=== PATIENT | female | born 1970 | race Caucasian/White ===

== ENCOUNTER 2018-01-19 08:38 | Outpatient (REF) | payer BC, SELFPAY ==
[2018-01-19 20:51] LABS: HCT 31.4 % (36.0-46.0); Mean Corp. HGB Concentration 28.7 g/dL (32.0-36.0); Mean Corpuscular Hemoglobin 19.2 pg (27.0-33.0); RBC 4.69 m/cumm (4.00-5.20); RBC Distribution Width 18.5 % (11.7-14.6); White Blood Cell Count 5.19 k/cumm (4.4-10.8)
[2018-01-19 20:58] LABS: ALT 23 U/L (12-78); AST 15 U/L (15-37); Alkaline Phosphatase 71 U/L (46-116); Anion Gap 10.6 mmol/L (3-11); BUN 18 mg/dL (7-18); Bilirubin, Total 0.3 mg/dL (0.2-1.0); CO2 25.4 mmol/L (21.0-32.0); CREATININE 0.89 mg/dL (0.55-1.02); Calcium 8.9 mg/dL (8.5-10.1); Chloride 104 mmol/L (98-107); Cholesterol 174 mg/dL (50-200); Glucose 106 mg/dL (70-100); HDL Cholesterol 42 mg/dL (40-60); LDL CHOLESTEROL 112 mg/dL (<100); Magnesium 1.8 mg/dL (1.8-2.4); Potassium 4.2 mmol/L (3.5-5.1); Sodium 140 mmol/L (136-145); Total Protein 7.1 g/dL (6.4-8.2); Triglyceride 185 mg/dL (30-150)
[2018-01-19 21:49] LABS: Platelet Count 204 x1000/uL (130-400)
== END 2018-01-19 08:58 ==
LOC: NCHCN 08:38
PROVIDERS: PCP Specialist/Technologist Athletic Trainer; Visit Provider Specialist/Technologist Athletic Trainer
DX: E83.42 Hypomagnesemia (principal); E78.5 Hyperlipidemia, unspecified; K21.9 Gastro-esophageal reflux disease without esophagitis; R42 Dizziness and giddiness
CPT/HCPCS: 80053; 80061; 83721; 85027; 83735

== ENCOUNTER 2018-02-09 08:36 | Outpatient (REF) | payer BC, SELFPAY ==
[2018-02-09 20:58] LABS: HCT 29.8 % (36.0-46.0); HGB 8.6 g/dL (12.0-15.5)
[2018-02-09 21:22] LABS: Iron 19 ug/dL (50-175); Total Iron Binding Capacity 541 ug/dL (250-450); Transferrin Sat 4 % (15-50)
[2018-02-09 21:48] LABS: Ferritin 4 ng/mL (8-388); Vitamin B12 331 pg/mL (193-986)
== END 2018-02-09 08:56 ==
LOC: NCHCN 08:36
PROVIDERS: PCP Specialist/Technologist Athletic Trainer; Visit Provider Specialist/Technologist Athletic Trainer
DX: D64.9 Anemia, unspecified (principal)
CPT/HCPCS: 82607; 82728; 83540; 83550; 85014; 85018

== ENCOUNTER 2018-02-23 11:36 | Outpatient (REF) | payer BC, SELFPAY ==
--- NOTE | 2018-02-23 08:40 | PAPFT_PTH ---
PATIENT: Luna Contreras LOC: [facility] U#:[id number] AGE/SX: 47/F ROOM: RE02/23/[address]: Rosamaria Rojo NP : 1970 BED: DIS: 02/23/2018 SPEC #: [id number] RECD: 02/23/18 13:20 STATUS: KIERA SALGADO #: [id number] KIKI: 02/23/18 08:[address]: Rosamaria Rojo NP DEPT: [facility] Cytology RECD BY: Catrachita Cash ENTERED: 02/23/18 13:20 SP TYPE: PAPFT OTHR DR: Gaurang Queen Tissues: 1 - CX/ENDOCX FOR PAP SMEARS Procedures: PAP THIN PREP/UVM Screening HPV DNA PROBE Comments: [id number]
== END 2018-02-23 11:56 ==
LOC: LBN 11:36
PROVIDERS: PCP Specialist/Technologist Athletic Trainer; Visit Provider Nurse Practitioner Women's Health
DX: Z12.4 Encounter for screening for malignant neoplasm of cervix (principal); Z11.51 Encounter for screening for human papillomavirus (HPV)
CPT/HCPCS: 88142; 87624

== ENCOUNTER 2018-03-06 00:27 | Outpatient (CLI) | payer BC, SELFPAY ==
--- NOTE | 2018-03-06 07:30 | DI.MAMMO_ITS ---
SYMPTOM/DIAGNOSIS: SCREENING, Z12.31 MAMMOGRAMS: Mammograms were interpreted according to the usual protocol including computer analysis with CAD system, tomosynthesis and C view imaging. No masses or microcalcifications are seen. There is nothing to suggest malignancy. No priors for comparison. Breast density B. IMPRESSION: Category 1-B. Negative mammogram. Routine screening is recommended. MQSA ASSESSMENT OF FINDINGS: Negative. Category 1. Patient will receive a letter notifying them of these results. BI-RADS category B. There are scattered areas of fibroglandular density.
== END 2018-03-06 00:47 ==
PROVIDERS: PCP Specialist/Technologist Athletic Trainer; Visit Provider Nurse Practitioner Women's Health
DX: Z12.31 Encounter for screening mammogram for malignant neoplasm of breast (principal)
CPT/HCPCS: 77063; 77067

== ENCOUNTER 2018-03-08 08:11 | Outpatient (REF) | payer BC, SELFPAY ==
[2018-03-08 20:12] LABS: HGB 12.1 g/dL (12.0-15.5); Mean Corp. HGB Concentration 30.3 g/dL (32.0-36.0); Mean Corpuscular Hemoglobin 23.4 pg (27.0-33.0); Mean Corpuscular Volume 77.4 fL (80-95); Platelet Count 166 x1000/uL (130-400); RBC 5.17 m/cumm (4.00-5.20); White Blood Cell Count 5.03 k/cumm (4.4-10.8)
== END 2018-03-08 08:31 ==
LOC: NCHCN 08:11
PROVIDERS: PCP Specialist/Technologist Athletic Trainer; Visit Provider Specialist/Technologist Athletic Trainer
DX: D64.9 Anemia, unspecified (principal)
CPT/HCPCS: 85027

== ENCOUNTER 2018-05-11 21:01 | Outpatient (REF) | payer BC, SELFPAY ==
[2018-05-11 21:53] LABS: HGB 14.3 g/dL (12.0-15.5); Mean Corp. HGB Concentration 33.3 g/dL (32.0-36.0); Mean Corpuscular Hemoglobin 27.6 pg (27.0-33.0); RBC 5.18 m/cumm (4.00-5.20); RBC Distribution Width 17.4 % (11.7-14.6); White Blood Cell Count 6.53 k/cumm (4.4-10.8)
[2018-05-11 22:59] LABS: Platelet Count 136 x1000/uL (130-400)
== END 2018-05-11 21:21 ==
LOC: NCHCN 21:01
PROVIDERS: PCP Specialist/Technologist Athletic Trainer; Visit Provider Specialist/Technologist Athletic Trainer
DX: D64.9 Anemia, unspecified (principal)
CPT/HCPCS: 85027

== ENCOUNTER 2018-05-31 05:15 | Outpatient (CLI) | payer BC, SELFPAY ==
--- NOTE | 2018-05-31 08:19 | DI.RAD_ITS ---
SYMPTOMS/DIAGNOSIS: LOW BACK PAIN, M54.5, ACUTE ON CHRONIC LOW BACK PAIN WITH RADICULAR SYMPTOMS LUMBOSACRAL SPINE: Five views were obtained. There is a slight right convex lumbar scoliosis. The SI joints appear fairly well maintained. The intervertebral disc spaces are well maintained. Minimal hypertrophic spurring of the vertebral endplates and facet joints noted throughout the lumbar region. No evidence of vertebral compression fracture. No evidence of spondylolysis or spondylolisthesis. CONCLUSION: Mild DJD of the lumbar spine.
== END 2018-05-31 05:35 ==
PROVIDERS: PCP Specialist/Technologist Athletic Trainer; Visit Provider Specialist/Technologist Athletic Trainer
DX: M54.16 Radiculopathy, lumbar region (principal); M47.26 Other spondylosis with radiculopathy, lumbar region; G89.29 Other chronic pain
CPT/HCPCS: 72110

== ENCOUNTER 2018-08-20 15:53 | Emergency (ER) | payer BC, SELFPAY ==
[2018-08-20 16:18] VITALS: BP 137/91; PULSE 83; RESP 16; TEMP 36.1; O2SAT 97
--- NOTE | 2018-08-20 17:15 | W.ED.GENAD ---
Discharge Plan Disposition Patient Disposition: HOME Discharge Details Chief Complaint: Nk/Back Pain Clinical Impression: Back pain, Spasm of back muscles, Sciatica of right side, Bronchitis Primary Care Provider: Gaurang Queen ED Provider: Abdulaziz Wahl Home Meds and New Rx's Prescriptions: New doxycycline hyclate 100 mg tablet 100 mg PO BID Qty: 14 RF: 0 diazepam [Valium] 2 mg tablet 2 mg PO BID PRN (Reason: muscle spasm) Qty: 8 RF: 0 lidocaine 5 % adhesive patch,medicated 1 patch TP DAILY Qty: 15 RF: 0 Continued lovastatin 10 MG tablet 20 mg PO HS RF: 0 omeprazole 40 MG capsule,delayed release(DR/EC) 40 mg PO DAILY Qty: 60 RF: 0 ranitidine HCl [Zantac Maximum Strength] 150 MG tablet 300 mg PO HS Qty: 60 RF: 5 metoprolol tartrate 25 MG tablet 25 mg PO BID RF: 0 Discontinued ferrous sulfate 324 mg (65 mg iron) tablet,delayed release (DR/EC) 324 mg PO TID RF: 0 Discharge Instructions Instructions: Sciatica (ED), Muscle Spasm (ED) Additional Instructions: Do not take iron while taking doxycycline. Complete full course of antibiotic as prescribed. Please take ibuprofen over the counter - 600mg every 6 hours as needed for pain. Please contact your primary care physician to arrange follow-up. Return to the ER for any worsening or new concerning symptoms. Referrals: Gaurang Queen [Primary Care Provider] - Discharge Data Discharge Date/Time-TO BE ENTERED AT DEPARTURE: 08/20/18 17:55 Medical Decision Making 48-year-old female here with exacerbation of chronic low back pain and sciatica neurologically intact. No signs of cauda equina. Suspect right lumbar paraspinal spasm and nerve root irritation. Plan to treat with Toradol 30 mg IM, Valium 2 mg orally. Patient is a smoker and has been coughing persistently for the past 3 weeks. She is afebrile and saturating well. Lungs sound clear but cough is harsh. Plan to treat with doxycycline for bronchitis. Usual customary discharge instructions were provided. She verbalized understanding of the importance of timely outpatient follow-up. HPI General Mode of arrival: ambulatory. Date/Time Provider Initiated Documentation: 08/20/18 16:28. Limitations to Documentation: no limitations. Information obtained by: patient. HPI Narrative: 48-year-old female with history of intermittent chronic low back pain and sciatica, here with exacerbation of her chronic low back pain. Patient notes that she is been fairly pain-free over the past month and a half and this morning she coughed hard and threw her back out. She notes pain and spasm in her right lower back. Pain radiates into her right posterior lateral thigh and down her lateral right leg. Pain is severe. Worse with bending and twisting. No associated numbness or weakness. No bowel or bladder dysfunction. Of note, patient smokes 1/2 pack of cigarettes a day. She is been coughing persistently for the past 3 weeks. Cough is harsh. No associated chest pain or shortness of breath. No recent fever. Related Data Home Medications Medication Instructions Recorded Confirmed metoprolol tartrate 25 mg PO BID 05/05/13 02/23/18 lovastatin 20 mg PO HS tab-cap 05/04/17 02/23/18 omeprazole 40 mg PO DAILY #60 capsule. 07/22/17 02/23/18 ranitidine HCl [Zantac Maximum 300 mg PO HS #60 tab-cap 07/22/17 02/23/18 Strength] diazepam [Valium] 2 mg PO BID PRN #8 tab 08/20/18 doxycycline hyclate 100 mg PO BID #14 tab 08/20/18 lidocaine 1 patch TP DAILY #15 each 08/20/18 Previous Rx's Medication Instructions Recorded omeprazole 40 mg PO DAILY #60 capsule. 07/22/17 ranitidine HCl [Zantac Maximum 300 mg PO HS #60 tab-cap 07/22/17 Strength] diazepam [Valium] 2 mg PO BID PRN #8 tab 08/20/18 doxycycline hyclate 100 mg PO BID #14 tab 08/20/18 lidocaine 1 patch TP DAILY #15 each 08/20/18 Allergies Allergy/AdvReac Type Severity Reaction Status Date / Time bandaids AdvReac Intermediate skin rash Uncoded 08/20/18 16:22 General Stated Complaint: Nk/Back Pain MARION: 4 Review of Systems Review of Systems All systems reviewed & are unremarkable except as noted in HPI and below Constitutional Denies fever(s) ENT Denies dizziness Musculoskeletal Reports as per HPI, Reports back pain and Denies numbness Neurologic Denies dizziness and Denies numbness FOR[facility]LY [facility], [facility] Medical History Migraine (Chronic) GERD (gastroesophageal reflux disease) Hip pain, right Hyperlipidemia Hypomagnesemia Low back pain Marital problem Mood disorder PTSD (post-traumatic stress disorder) Restless legs Sleep apnea Tobacco use disorder Ventricular fibrillation Surgical History EGD - MAC (07/04/17) Implantation of automatic cardioverter/defibrillator, total system (AICD) Family History Father Diabetes Hypertension Hypercholesteremia Myocardial infarction Mother Hypertension Hypercholesteremia Sister Hypercholesteremia Thyroid disease Lupus (systemic lupus erythematosus) Sister Hypercholesteremia Sister Hypercholesteremia Sister Hypercholesteremia Brother Hypercholesteremia Diabetes Social History Smoking/Tobacco Use Status: Current every day Tobacco Type: cigarettes Drug use: Never Female Reproductive History Menstrual control method: permanent sterilization (tubal 1998) History History 3 Para 2 Hx # Term Pregnancies Multiple births Hx # Pregnancies Ectopic pregnancies AB induced Hx Number of Living Children AB spontaneous Exam Const General: cooperative and no acute distress HENMT Head: normocephalic Mouth: moist mucous membranes Eyes Conjunctivae: normal conjunctivae Sclera: normal sclerae Neck Neck: full ROM Resp Auscultation: clear to auscultation bilaterally, no rales, no rhonchi and no wheezes Cardio Jugular venous pressure: no JVD Rate: regular rate and not tachycardic Rhythm: regular rhythm GI Palpation: soft, not firm, no guarding, not rigid and nontender Auscultation: normal bowel sounds Back/Spine/Pelvis Back: No erythema Thoracic/Lumbar Spine: lumbar spinal tenderness (rt lumbar paraspinal) Skin General skin exam: no rashes or lesions noted Neuro General: alert, awake, oriented x3, tone normal and deep tendon reflexes 2+ bilaterally (patellar) Motor: strength 5/5 throughout (bilateral LEs) Sensory Exam: no sensory deficits noted (LEs ) Extrem General: no edema Course Vital Signs Temperature 36.1 C L 08/20/18 16:18 Pulse 83 08/20/18 16:18 Respiratory Rate 16 08/20/18 16:18 Blood Pressure 137/91 H 08/20/18 16:18 Pulse Oximetry 97 08/20/18 16:18 Temperature 36.1 C L 08/20/18 16:18 Temperature Source Skin 08/20/18 16:18 Pulse 83 08/20/18 16:18 Respiratory Rate 16 08/20/18 16:18 Respiratory Effort Non-Labored 08/20/18 16:18 Blood Pressure 137/91 H 08/20/18 16:18 Blood Pressure Position Sitting 08/20/18 16:18 Pulse Oximetry 97 08/20/18 16:18 Oxygen Delivery Method Room Air 08/20/18 16:18 Oxygen Flow Rate 0 08/20/18 16:18 Pain Level 10 08/20/18 16:18
--- NOTE | 2018-08-20 17:23 | ED.GENADUL_ITS ---
Discharge Plan Disposition Patient Disposition: HOME Discharge Details Chief Complaint: Nk/Back Pain Clinical Impression: Back pain, Spasm of back muscles, Sciatica of right side, Bronchitis Primary Care Provider: Gaurang Queen ED Provider: Abdulaziz Wahl Home Meds and New Rx's Prescriptions: New doxycycline hyclate 100 mg tablet 100 mg PO BID Qty: 14 RF: 0 diazepam [Valium] 2 mg tablet 2 mg PO BID PRN (Reason: muscle spasm) Qty: 8 RF: 0 lidocaine 5 % adhesive patch,medicated 1 patch TP DAILY Qty: 15 RF: 0 Continued lovastatin 10 MG tablet 20 mg PO HS RF: 0 omeprazole 40 MG capsule,delayed release(DR/EC) 40 mg PO DAILY Qty: 60 RF: 0 ranitidine HCl [Zantac Maximum Strength] 150 MG tablet 300 mg PO HS Qty: 60 RF: 5 metoprolol tartrate 25 MG tablet 25 mg PO BID RF: 0 Discontinued ferrous sulfate 324 mg (65 mg iron) tablet,delayed release (DR/EC) 324 mg PO TID RF: 0 Discharge Instructions Instructions: Sciatica (ED), Muscle Spasm (ED) Additional Instructions: Do not take iron while taking doxycycline. Complete full course of antibiotic as prescribed. Please take ibuprofen over the counter - 600mg every 6 hours as needed for pain. Please contact your primary care physician to arrange follow-up. Return to the ER for any worsening or new concerning symptoms. Referrals: Gaurang Queen [Primary Care Provider] - Discharge Data Discharge Date/Time-TO BE ENTERED AT DEPARTURE: 08/20/18 17:55 Medical Decision Making 48-year-old female here with exacerbation of chronic low back pain and sciatica neurologically intact. No signs of cauda equina. Suspect right lumbar paraspinal spasm and nerve root irritation. Plan to treat with Toradol 30 mg IM, Valium 2 mg orally. Patient is a smoker and has been coughing persistently for the past 3 weeks. She is afebrile and saturating well. Lungs sound clear but cough is harsh. Plan to treat with doxycycline for bronchitis. Usual customary discharge instructions were provided. She verbalized understand ing of the importance of timely outpatient follow-up. HPI General Mode of arrival: ambulatory . Date/Time Provider Initiated Documentation: 08/20/18 16:28 . Limitations to Documentation: no limitations . Information obtained by: patient . HPI Narrative: 48-year-old female with history of intermittent chronic low back pain and sciatica, here with exacerbation of her chronic low back pain. Patient notes that she is been fairly pain-free over the past month and a half and this morning she coughed hard and threw her back out. She notes pain and spasm in her right lower b ack. Pain radiates into her right posterior lateral thigh and down her lateral right leg. Pain is severe. Worse with bending and twisting. No associated numbness or weakness. No bowel or bladder dysfunction. Of note, patient smokes 1/2 pack of cigarettes a day. She is been coughing persistently for the past 3 weeks. Cough is harsh. No associated chest pain or shortness of breath. No recent fever. Related Data Home Medications Medication Instructions Recorded Confirmed metoprolol tartrate 25 mg PO BID 05/05/13 02/23/18 lovastatin 20 mg PO HS tab-cap 05/04/17 02/23/18 omeprazole 40 mg PO DAILY #60 capsule. 07/22/17 02/23/18 ranitidine HCl [Zantac Maximum 300 mg PO HS #60 tab-cap 07/22/17 02/23/18 Strength] diazepam [Valium] 2 mg PO BID PRN #8 tab 08/20/18 doxycycline hyclate 100 mg PO BID #14 tab 08/20/18 lidocaine 1 patch TP DAILY #15 each 08/20/18 Previous Rx's Medication Instructions Recorded omeprazole 40 mg PO DAILY #60 capsule. 07/22/17 ranitidine HCl [Zantac Maximum 300 mg PO HS #60 tab-cap 07/22/17 Strength] diazepam [Valium] 2 mg PO BID PRN #8 tab 08/20/18 doxycycline hyclate 100 mg PO BID #14 tab 08/20/18 lidocaine 1 patch TP DAILY #15 each 08/20/18 Allergies Allergy/AdvReac Type Severity Reaction Status Date / Time bandaids AdvReac Intermediate skin rash Uncoded 08/20/18 16:22 General Stated Complaint: Nk/Back Pain MARION: 4 Review of Systems Review of Systems All systems reviewed & are unremarkable except as noted in HPI and below Constitutional Denies fever(s) ENT Denies dizziness Musculoskeletal Reports as per HPI, Reports back pain and Denies numbness Neurologic Denies dizziness and Denies numbness PFS Medical History Migraine (Chronic) GERD (gastroesophageal reflux disease) Hip pain, right Hyperlipidemia Hypomagnesemia Low back pain Marital problem Mood disorder PTSD (post-traumatic stress disorder) Restless legs Sleep apnea Tobacco use disorder Ventricular fibrillation Surgical History EGD - MAC (07/04/17) Implantation of automatic cardioverter/defibrillator, total system (AICD) Family History Father Diabetes Hypertension Hypercholesteremia Myocardial infarction Mother Hypertension Hypercholesteremia Sister Hypercholesteremia Thyroid disease Lupus (systemic lupus erythematosus) Sister Hypercholesteremia Sister Hypercholesteremia Sister Hypercholesteremia Brother Hypercholesteremia Diabetes Social History Smoking/Tobacco Use Status: Current every day Tobacco Type: cigarettes Drug use: Never Female Reproductive History Menstrual control method: permanent sterilization (tubal 1999) History History 3 Para 2 Hx # Term Pregnancies Multiple births Hx # Pregnancies Ectopic pregnancies AB induced Hx Number of Living Children AB spontaneous Exam Const General: cooperative and no acute distress HENMT Head: normocephalic Mouth: moist mucous membranes Eyes Conjunctivae: normal conjunctivae Sclera: normal sclerae Neck Neck: full ROM Resp Auscultation: clear to auscultation bilaterally, no rales, no rhonchi and no wheezes Cardio Jugular venous pressure: no JVD Rate: regular rate and not tachycardic Rhythm: regular rhythm GI Palpation: soft, not firm, no guarding, not rigid and nontender Auscultation: normal bowel sounds Back/Spine/Pelvis Back: No erythema Thoracic/Lumbar Spine: lumbar spinal tenderness (rt lumbar paraspinal) Skin General skin exam: no rashes or lesions noted Neuro General: alert, awake, oriented x3, tone normal and deep tendon reflexes 2+ bilaterally (patellar) Motor: strength 5/5 throughout (bilateral LEs) Sensory Exam: no sensory deficits noted (LEs ) Extrem General: no edema Course Vital Signs Temperature 36.1 C L 08/20/18 16:18 Pulse 83 08/20/18 16:18 Respiratory Rate 16 08/20/18 16:18 Blood Pressure 137/91 H 08/20/18 16:18 Pulse Oximetry 97 08/20/18 16:18 Temperature 36.1 C L 08/20/18 16:18 Temperature Source Skin 08/20/18 16:18 Pulse 83 08/20/18 16:18 Respiratory Rate 16 08/20/18 16:18 Respiratory Effort Non-Labored 08/20/18 16:18 Blood Pressure 137/91 H 08/20/18 16:18 Blood Pressure Position Sitting 08/20/18 16:18 Pulse Oximetry 97 08/20/18 16:18 Oxygen Delivery Method Room Air 08/20/18 16:18 Oxygen Flow Rate 0 08/20/18 16:18 Pain Level 10 08/20/18 16:18
[2018-08-20] MEDS: diazePAM 2 MG TAB PO (17:45)
[2018-08-20] MEDS: Ketorolac 30 MG/ML VIAL IM (17:45)
[2018-08-20] MEDS: Doxycycline Hyclate 100 MG CAP PO (17:45)
[2018-08-20] MEDS: Lidocaine 5% Patch 1 PATCH TP (17:46)
== END 2018-08-20 18:00 | disposition home or self-care (01) ==
PROVIDERS: Emergency Provider Student in an Organized Health Care Education/Training Program; PCP Specialist/Technologist Athletic Trainer
DX: M54.41 Lumbago with sciatica, right side (principal); M62.830 Muscle spasm of back; J20.9 Acute bronchitis, unspecified
CPT/HCPCS: 96372; 99284; J1885

== ENCOUNTER 2019-05-10 09:42 | Outpatient (REF) | payer BC, SELFPAY ==
[2019-05-10 22:10] LABS: HCT 42.8 % (36.0-46.0); HGB 14.2 g/dL (12.0-15.5); Mean Corp. HGB Concentration 33.2 g/dL (32.0-36.0); Mean Corpuscular Hemoglobin 28.9 pg (27.0-33.0); Mean Corpuscular Volume 87.2 fL (80-95); Platelet Count 152 x1000/uL (130-400); RBC 4.91 m/cumm (4.00-5.20); RBC Distribution Width 13.4 % (11.7-14.6); White Blood Cell Count 6.49 k/cumm (4.4-10.8)
[2019-05-10 22:17] LABS: Anion Gap 11.3 mmol/L (3-11); BUN 16 mg/dL (7-18); CO2 25.7 mmol/L (21.0-32.0); CREATININE 0.77 mg/dL (0.55-1.02); Calcium 9.2 mg/dL (8.5-10.1); Chloride 105 mmol/L (98-107); Glucose 99 mg/dL (74-106); Magnesium 1.9 mg/dL (1.8-2.4); Potassium 4.7 mmol/L (3.5-5.1); Sodium 142 mmol/L (136-145)
== END 2019-05-10 10:02 ==
LOC: NCHCN 09:42
PROVIDERS: PCP Specialist/Technologist Athletic Trainer; Visit Provider Specialist/Technologist Athletic Trainer
DX: D64.9 Anemia, unspecified (principal); E83.42 Hypomagnesemia; Z00.00 Encounter for general adult medical examination without abnormal findings
CPT/HCPCS: 80048; 85027; 83735

== ENCOUNTER 2019-07-05 01:43 | Outpatient (CLI) | payer BC, SELFPAY ==
--- NOTE | 2019-07-05 16:28 | DI.MAMMO_ITS ---
EXAM: MG MAMMO SCREENING CLINICAL HISTORY: SCREENING, Z12.31, [facility], Z00.00 TECHNIQUE: Bilateral full field digital CC and MLO mammographic images were obtained with 3D tomosyn thesis and utilizing computer aided detection (CAD). COMPARISON: 2017 FINDINGS: Masses/Architectural Distortion: None seen. Microcalcifications: No suspicious pleomorphic-type are seen. Skin Thickening/Nipple Retraction: None. IMPRESSION: 1. No significant interval change with no specific features of malignancy noted. 2. Unless there is more urgent need, screening mammography is recommended, as per [employer] guidelines. BI-RADS Category 1 - Negative Breast Density - Category B - Scattered areas of fibroglandular density A negative radiographic report should not delay biopsy if a dominant or clinically suspicious mass is present. Up to ten percent of cancers are not identified on mammography. A negative report may reinforce clinical impression. Adenosis and dense breasts may obscure an underlying neoplasm. False positive reports average 6 to 10%. Patient will receive a letter notifying them of these results.
== END 2019-07-05 02:03 ==
PROVIDERS: PCP Specialist/Technologist Athletic Trainer; Visit Provider Specialist/Technologist Athletic Trainer
DX: Z12.31 Encounter for screening mammogram for malignant neoplasm of breast (principal); Z00.00 Encounter for general adult medical examination without abnormal findings
CPT/HCPCS: 77063; 77067

== ENCOUNTER 2019-08-05 16:27 | Emergency (ER) | payer BC, SELFPAY ==
[2019-08-05] VITALS (19 sets, daily range): BP systolic 138–160; BP diastolic 76–97; PULSE 79–89; RESP 10–21; TEMP 36.7; O2SAT 96–99
--- NOTE | 2019-08-05 16:40 | ED.GENADUL_ITS ---
Discharge Plan Disposition Patient Disposition: HOME Condition: Improving Discharge Details Chief Complaint: Palpitatns Clinical Impression: Defibrillator discharge Primary Care Provider: Gaurang Queen ED Provider: Jg Borja Home Meds and New Rx's Prescriptions: Continued lovastatin 10 MG tablet 20 mg PO HS RF: 0 omeprazole 40 MG capsule,delayed release(DR/EC) 40 mg PO DAILY Qty: 60 RF: 0 metoprolol tartrate 25 MG tablet 25 mg PO BID RF: 0 famotidine 20 mg tablet 20 mg PO HS PRNRF: 0 ferrous gluconate 324 mg (38 mg iron) tablet 324 mg PO DAILY RF: 0 Discharge Instructions Additional Instructions: I discussed your case with on-call cardiology at [facility] this evening. They will like to see you in pacemaker/device clinic for follow-up and asked that you call for an appointment time. The cardiovascular office number is [phone]. Continue your regular medications. As we discussed avoid strenuous exercise. Return to the emergency department for any acute concerns. Medical Decision Making 49-year-old female presents for evaluation of single defibrillator discharge without loss of consciousness. Patient had a defibrillator placed in 2012 for V. fib which occurred in this emergency department. She is been doing well in the intervening years. Today she was working in her garden and her dog ran out of the yard. Patient ran after the dog to catch him. She states she is a smoker who does not routinely exercise and was feeling out of breath when running. She heard a whirring sound in her chest and then felt her defibrillator discharge. She did fall to the ground but did not have a loss of consciousness. She states she now feels improved. She arrives to the ER slightly anxious and blood pressure 160/87, pulse 88, respirations 16 she is afebrile with a 99% sat on room air. Chest x-ray with no acute findings: Pacemaker lead intact. Patient's indwelling defibrillator was interrogated with evidence of single episode of V. fib which was terminated. Her laboratories are reassuring with unremarkable CBC and chemistries. Case discussed with on-call cardiology at [facility] and they asked that the patient be followed up and pacemaker clinic and that she call for an appointment time. She stable and improved, will discharge home. Lab Data Lab results reviewed: Yes I reviewed the patient's lab results. Labs: Laboratory Results - last 24 hr 08/05/19 08/05/19 17:00 17:00 WBC 5.65 RBC 4.41 Hgb 13.2 Hct 39.4 MCV 89.3 MCH 29.9 MCHC 33.5 RDW 13.2 MPV 11.8 H Immature Gran % 0.4 Neutrophils % 60.8 Lymphocytes % 28.5 Monocytes % 6.2 Eosinophils % 3.9 Basophils % 0.2 Absolute Neutrophils 3.44 Absolute Lymphocytes 1.61 Absolute Monocytes 0.35 Absolute Eosinophils 0.22 Absolute Basophils 0.01 Sodium 141 Potassium 4.3 Chloride 104 Carbon Dioxide 26.7 Anion Gap 10.3 BUN 17 Creatinine 0.89 Estimated GFR/1.73 m2 >= 60.00 Glucose 89 Calcium 8.9 Magnesium 1.8 Total Bilirubin 0.3 AST 33 ALT 41 Alkaline Phosphatase 66 Total Protein 6.9 Albumin 3.9 ECG Data Attestation: I personally reviewed and interpreted this ECG (s) as follows: Interpretation: Normal sinus rhythm with a rate of 89, the QRS is narrow, there is no ST segment elevation present HPI General Mode of arrival: ambulatory . Date/Time Provider Initiated Documentation: 08/05/19 16:28 . Limitations to Documentation: no limitations . Information obtained by: patient . History of Present Illness 49 year old F presents to the emergency department with the chief complaint of Defibrillator discharge, described as moderate, and is localized to the chest. Patient reports no radiation. Patient started experiencing this minute(s) and it has been now resolved. No relieving factors improve symptom(s), No exacerbating factors reported . Patient notes denies syncope and weakness. Patient did receive the following treatments prior to arrival, none Related Data Home Medications Medication Instructions Recorded Confirmed metoprolol tartrate 25 mg PO BID 05/05/13 08/05/19 lovastatin 20 mg PO HS tab-cap 05/04/17 08/05/19 omeprazole 40 mg PO DAILY #60 capsule. 07/22/17 08/05/19 famotidine 20 mg PO HS PRN 08/05/19 08/05/19 ferrous gluconate 324 mg PO DAILY 08/05/19 08/05/19 Previous Rx's Medication Instructions Recorded omeprazole 40 mg PO DAILY #60 capsule. 07/22/17 Allergies Allergy/AdvReac Type Severity Reaction Status Date / Time bandaids AdvReac Intermediate skin rash Uncoded 08/05/19 16:38 General Stated Complaint: Palpitatns MARION: 2 Review of Systems Narrative: 6 systems reviewed and otherwise negative [facility] Medical History GERD (gastroesophageal reflux disease) Hip pain, right Hyperlipidemia Hypomagnesemia Low back pain Marital problem Migraine (Chronic) Mood disorder PTSD (post-traumatic stress disorder) Restless legs Sleep apnea Tobacco use disorder Ventricular fibrillation Surgical History EGD - MAC (07/04/17) Implantation of automatic cardioverter/defibrillator, total system (AICD) Family History Father , 63 from [place] Diabetes Hypertension Hypercholesteremia Myocardial infarction Mother Hypertension Hypercholesteremia Sister Hypercholesteremia Thyroid disease Lupus (systemic lupus erythematosus) Sister Hypercholesteremia Sister Hypercholesteremia Sister Hypercholesteremia Brother Hypercholesteremia Diabetes Social History Smoking/Tobacco Use Status: Current every day Tobacco Type: cigarettes Smoking packs per day: 0.5 Smoking cigarettes per day: 10.0 Alcohol Intake: never Drug use: Never Do you feel safe at home: Yes Do you feel safe in your relationship?: Yes Female Reproductive History Menstrual control method: permanent sterilization (tubal 1998) History History 3 Para 2 Hx # Term Pregnancies Multiple births Hx # Pregnancies Ectopic pregnancies AB induced Hx Number of Living Children AB spontaneous Exam Narrative Exam Narrative: GEN: awake, alert, oriented 3. Pleasant, well groomed, interactive. HEAD: Normocephalic, atraumatic ENT: Mucous membranes moist, oropharynx unremarkable, External ear exam unremar kable EYES: PERRL, EOMI NECK: Full ROM, no ROCKY, no menigismus CHEST/RESP: Left upper chest wall anterior subcutaneous device palpable, nontender, clear to auscultation bilateral, no wheeze/rhonchi/rales CARDIOVASCULAR: RRR, no murmur, rub nhan. 2+ Rad pulse bilateral ABDOMEN: Soft, nontender, no mass. +Bowel sounds EXT: Full ROM, no edema, no rash Neuro: Grossly normal neurologic exam, conversant, interactive. Psych: Speech fluent, thoughts congruent, affect anxious Course Vital Signs Vital signs: Vital Signs Temperature 36.7 C 08/05/19 16:32 Pulse 88 08/05/19 16:32 Respiratory Rate 16 08/05/19 16:32 Blood Pressure 160/87 H 08/05/19 16:32 Pulse Oximetry 99 08/05/19 16:32 Temperature 36.7 C 08/05/19 16:32 Temperature Source Temporal Artery Scan 08/05/19 16:32 Pulse 88 08/05/19 16:32 Respiratory Rate 16 08/05/19 16:32 Respiratory Effort Non-Labored 08/05/19 16:37 Blood Pressure 160/87 H 08/05/19 16:32 Blood Pressure Position Supine 08/05/19 16:32 Pulse Oximetry 99 08/05/19 16:32 Oxygen Delivery Method Room Air 08/05/19 16:32 Oxygen Flow Rate 0 08/05/19 16:32 Pain Level 0 08/05/19 16:32
[2019-08-05] MEDS: Normal Saline 1,000 ML 150 ML IV ×2 (17:00→17:12)
[2019-08-05 17:06] LABS: Abs Immature Grans 0.02 k/cumm (0.0-0.09); Absolute Basophil Count 0.01 k/cumm (0.0-0.2); Absolute Eosinophil Count 0.22 k/cumm (0.0-0.7); Absolute Lymphocyte Count 1.61 k/cumm (1.2-3.4); Absolute Monocyte Count 0.35 k/cumm (0.11-0.7); Absolute Neutrophil Count 3.44 k/cumm (1.2-6.7); Basophils % 0.2; Eosinophils % 3.9; HCT 39.4 % (36.0-46.0); HGB 13.2 g/dL (12.0-15.5); Immature Grans % 0.4 %; Lymphocytes % 28.5; Mean Corp. HGB Concentration 33.5 g/dL (32.0-36.0); Mean Corpuscular Hemoglobin 29.9 pg (27.0-33.0); Mean Corpuscular Volume 89.3 fL (80-95); Mean Platelet Volume 11.8 fL (8.0-11.0); Monocytes % 6.2; Neutrophils % 60.8; RBC 4.41 m/cumm (4.00-5.20); RBC Distribution Width 13.2 % (11.7-14.6); White Blood Cell Count 5.65 k/cumm (4.4-10.8)
[2019-08-05 17:30] LABS: ALT 41 U/L (14-59); AST 33 U/L (15-37); Albumin 3.9 g/dL (3.4-5.0); Alkaline Phosphatase 66 U/L (46-116); Anion Gap 10.3 mmol/L (3-11); BUN 17 mg/dL (7-18); Bilirubin, Total 0.3 mg/dL (0.2-1.0); CO2 26.7 mmol/L (21.0-32.0); CREATININE 0.89 mg/dL (0.55-1.02); Calcium 8.9 mg/dL (8.5-10.1); Chloride 104 mmol/L (98-107); Glucose 89 mg/dL (74-106); Magnesium 1.8 mg/dL (1.8-2.4); Potassium 4.3 mmol/L (3.5-5.1); Sodium 141 mmol/L (136-145); Total Protein 6.9 g/dL (6.4-8.2)
--- NOTE | 2019-08-05 17:40 | DI.RAD_ITS ---
EXAM: XR CHEST 2V PA LATERAL CLINICAL HISTORY: Defibrillator discharge TECHNIQUE: 2D digital imaging was performed. COMPARISON: CHEST FOR PULMONARY EMBOLUS from 09/25/2012 FINDINGS: MEDIASTINUM: Normal. HEART: Normal. PULMONARY VASCULATURE: Normal. LUNGS: Clear. PLEURAL SPACE: No pleural effusion or pneumothorax. BONE:Normal. OTHER FINDINGS:Single lead pacing device in good position. IMPRESSION: No acute pulmonary findings. DATA REPOSITORY: RADIATION DOSE DELIVERED:
--- NOTE | 2019-08-05 17:43 | DI.VRAD_ITS ---
PROCEDURE INFORMATION: Exam: XR Chest, 2 Views Exam date and time: 08/05/2019 5:38 PM Age: 49 years old Clinical indication: Other: Defibrillator discharge TECHNIQUE: Imaging protocol: XR of the chest Views: 2 views. COMPARISON: CR PORTABLE CHEST ONE VIEW 09/25/2012 7:42 AM FINDINGS: Tubes, catheters and devices: Single transvenous pacemaker lead Lungs: Unremarkable. No consolidation. Pleural space: Unremarkable. No pleural effusion. No pneumothorax. Heart/Mediastinum: Unremarkable. No cardiomegaly. Bones/joints: Unremarkable. IMPRESSION: No acute process Dictated and Authenticated by: Guy Martinez MD. Ordering:CORRY Gregorio MD
[2019-08-05 17:47] LABS: Platelet Count 167 x1000/uL (130-400)
--- NOTE | 2019-08-05 17:50 | NUR.NOTE ---
Nursing Note: 1700 defibrillator unit interrogated with medtronic device
== END 2019-08-05 19:05 | disposition home or self-care (01) ==
PROVIDERS: Emergency Provider Emergency Medicine; PCP Specialist/Technologist Athletic Trainer
DX: I47.2 Ventricular tachycardia (principal); Z95.810 Presence of automatic (implantable) cardiac defibrillator
CPT/HCPCS: 80053; 93005; 96360; 96361; 99284; 71046; 83735; 85025; 93010

== ENCOUNTER 2019-11-08 11:13 | Outpatient (REF) | payer BC, SELFPAY ==
[2019-11-08 19:43] LABS: TSH 7.49 uIU/mL (0.36-3.74)
[2019-11-08 20:24] LABS: Vitamin D 25 Total 31.2 ng/ml (30-100)
== END 2019-11-08 11:33 ==
LOC: NCHCN 11:13
PROVIDERS: PCP Specialist/Technologist Athletic Trainer; Visit Provider Nurse Practitioner Family
DX: R53.83 Other fatigue (principal); R51 Headache
CPT/HCPCS: 82306; 84443

== ENCOUNTER 2020-02-04 17:27 | Outpatient (REF) | payer BC, SELFPAY ==
[2020-02-04 20:05] LABS: Abs Immature Grans 0.02 10^3/uL (0.0-0.06); Absolute Basophil Count 0.02 10^3/uL (0.0-0.2); Absolute Eosinophil Count 0.14 10^3/uL (0.0-0.7); Absolute Lymphocyte Count 2.16 10^3/uL (1.2-3.4); Absolute Monocyte Count 0.45 10^3/uL (0.1-0.8); Absolute Neutrophil Count 3.68 10^3/uL (1.2-6.7); Basophils % 0.3; Eosinophils % 2.2; HCT 43.2 % (36.0-46.0); HGB 14.3 g/dL (11.2-15.7); Immature Grans % 0.3; Lymphocytes % 33.4; MCH 29.4 pg (27.0-33.0); MCHC 33.1 % (32.0-36.0); MCV 88.9 fL (80-95); MPV 12.3 fL (8.0-11.0); Neutrophils % 56.8; Nucleated RBC 0 %; Platelet Count 142 10^3/uL (130-400); RBC 4.86 10^6/uL (3.93-5.22); RDW 12.6 % (11.7-14.6); WBC 6.47 10^3/uL (4.4-10.8)
[2020-02-04 20:27] LABS: TSH 0.62 uIU/mL (0.36-3.74)
== END 2020-02-04 17:47 ==
LOC: NCHCN 17:27
PROVIDERS: PCP Specialist/Technologist Athletic Trainer; Visit Provider Nurse Practitioner Family
DX: E03.9 Hypothyroidism, unspecified (principal)
CPT/HCPCS: 84443; 85025

== ENCOUNTER 2020-06-20 13:50 | Outpatient (REF) | payer BC, SELFPAY ==
[2020-06-20 15:47] LABS: Calculated LDL 136 mg/dL (<100); Cholesterol 203 mg/dL (<200); HDL Cholesterol 42 mg/dL (40-60); TSH (W/Ref FT4) 1.17 uIU/mL (0.36-3.74); Triglyceride 127 mg/dL (<150)
== END 2020-06-20 13:51 | disposition home or self-care (01) ==
LOC: NCHCN 13:50
PROVIDERS: PCP Specialist/Technologist Athletic Trainer; Visit Provider Nurse Practitioner Family
DX: Z00.00 Encounter for general adult medical examination without abnormal findings (principal); E03.9 Hypothyroidism, unspecified
CPT/HCPCS: 80061; 84443

== ENCOUNTER 2021-02-18 08:36 | Outpatient (REF) | payer BC, SELFPAY ==
[2021-02-18 20:38] LABS: Anion Gap 7.4 mmol/L (3-11); BUN 14 mg/dL (7-18); CO2 27.6 mmol/L (21.0-32.0); CREATININE 0.8 mg/dL (0.55-1.02); Calcium 8.9 mg/dL (8.5-10.1); Calculated LDL 70 mg/dL (<100); Chloride 104 mmol/L (98-107); Cholesterol 135 mg/dL (<200); Glucose 93 mg/dL (74-106); HDL Cholesterol 39 mg/dL (40-60); Potassium 4.5 mmol/L (3.5-5.1); Sodium 139 mmol/L (136-145); TSH (W/Ref FT4) 1.54 uIU/mL (0.36-3.74); Triglyceride 132 mg/dL (<150)
== END 2021-02-18 08:37 | disposition home or self-care (01) ==
LOC: NCHCN 08:36
PROVIDERS: PCP Specialist/Technologist Athletic Trainer; Visit Provider Nurse Practitioner Family
DX: E78.5 Hyperlipidemia, unspecified (principal); I10 Essential (primary) hypertension; E03.9 Hypothyroidism, unspecified
CPT/HCPCS: 80048; 80061; 84443

== ENCOUNTER 2021-06-10 00:37 | Outpatient (CLI) | payer BC, SELFPAY ==
--- NOTE | 2021-06-10 07:30 | DI.MAMMO_ITS ---
Exam(s) MAMMO SCREENING EXAM: MAMMO SCREENING CLINICAL HISTORY: SCREENING, [facility], Z00.00; CARDIAC DEFIBRILLATOR IN SITU,. TECHNIQUE: Bilateral full field digital CC and MLO mammographic images were obtained with 3D tomosyn thesis and utilizing computer aided detection (CAD). COMPARISON: Prior mammograms were reviewed, the most recent being July 1999. FINDINGS: There has been no significant change in the appearance and distribution of the fibroglandular tissue There are no new spiculated masses nor malignant appearing microcalcification groups. There is no significant architectural distortion nor skin thickening-retraction. IMPRESSION: No radiographic evidence of malignancy. BI-RADS Category 1 - Negative Breast Density - Category B - Scattered areas of fibroglandular density Breast density Category C or D implies that the patient has dense breast tissue. Dense breast tissue can make it harder to find cancer on a mammogram. Dense breast tissue is also associated with an incr eased risk of breast cancer. This information about the result of the mammogram report was provided to the patient to raise their awareness. Use this report when you speak with the patient about their risks for breast cancer, which includes their family history. At that time, you may recommend additional screening tests (Ultrasoun d or MRI) as these tests may add significant information. A negative radiographic report should not delay biopsy if a dominant or clinically suspicious mass is present. Up to ten percent of cancers are not identified on mammography. A negative report may reinforce clinical impression. Adenosis and dense breasts may obscure an underlying neoplasm. False positive reports average 6 to 10%. Patient will receive a letter notifying them of these results.
== END 2021-06-10 00:57 ==
PROVIDERS: PCP Specialist/Technologist Athletic Trainer; Visit Provider Nurse Practitioner Family
DX: Z00.00 Encounter for general adult medical examination without abnormal findings (principal); Z12.31 Encounter for screening mammogram for malignant neoplasm of breast
CPT/HCPCS: 77063; 77067

== ENCOUNTER 2021-11-29 17:29 | Emergency (ER) | payer BC, SELFPAY ==
[2021-11-29 17:33] VITALS: BP 158/90; PULSE 78; RESP 18; TEMP 36.7; O2SAT 99
--- NOTE | 2021-11-29 17:36 | ED.GENADUL_ITS ---
Discharge Plan Disposition Patient Disposition: HOME Condition: Stable Discharge Details Clinical Impression: Acute viral pharyngitis, URI (upper respiratory infection) Primary Care Provider: Diana Jones ED Provider: Kervin Ortiz Home Meds and New Rx's Prescriptions: New prednisone 20 mg tablet 40 mg PO DAILY Qty: 8 0RF benzonatate 100 mg capsule 100 mg PO TID PRN (Reason: cough) Qty: 30 0RF Continued lovastatin 10 MG tablet 20 mg PO HS omeprazole 40 MG capsule,delayed release(DR/EC) 40 mg PO DAILY Qty: 60 0RF metoprolol tartrate 25 MG tablet 25 mg PO BID famotidine 20 mg tablet 20 mg PO HS PRN Label Comments: TAKE 1 TABLET BY MOUTH ONCE DAILY ferrous gluconate 324 mg (38 mg iron) tablet 324 mg PO DAILY Label Comments: TAKE 1 TABLET BY MOUTH TWICE DAILY Discharge Instructions Instructions: Pharyngitis (ED) Additional Instructions: If you develop any new or significant worsening of symptoms feel free to return the emergency department for reassessment. Otherwise take medication as prescribed, stay well-hydrated, and get plenty of rest. You may also use [id number] anesthetic sprays or lozenges as this may also help with the discomfort you are experiencing. Referrals: Diana Jones [Primary Care Provider] - 1 week (If not improving) Discharge Data Discharge Date/Time-TO BE ENTERED AT DEPARTURE: 11/29/21 18:07 Medical Decision Making Patient presenting the emergency department for chief complaint of sore throat. Patient reports viral type symptoms that started 2 weeks ago. She has done multiple COVID tests which have been negative that symptoms have continued with significant nasal congestion, postnasal drip, and persistent dry cough. Patient denies fever chills, and states only worsening symptom is throat and mouth irritation. Physical exam shows posterior pharynx erythema consistent with Pharyngitis. Patient has low Centor score so I do not feel this is strep pharyngitis no signs of deep neck space infection ( Retropharyngeal abscess, Jonathan's angina, Parapharyngeal space infection, Peritonsillar Abscess ([employer])) or Epiglottitis. Pt non toxic and stable. Suspect viral etiology to illness but given duration of symptoms we will treat patient with short steroid burst to see if this helps along with some Stephen Jensen. [id number] therapies were also discussed along with return and follow-up precautions. At this time I see no need for patient to need antibiotic therapy but did discuss further monitoring of symptoms. After discussion of diagnosis and plan of care patient has no further needs, questions, or concerns and states clear understanding to return to the emergency department for any worsening symptoms. This documentation was generated using BEKIZ dictation system, please disregard any oddities of phrase or misspellings. HPI General Mode of arrival: ambulatory . Date/Time Provider Initiated Documentation: 11/29/21 17:29 . Limitations to Documentation: no limitations . Information obtained by: patient and RN notes reviewed . History of Present Illness 51 year old F presents to the emergency department with the chief complaint of Sore throat, nasal congestion, cough, described as mild and moderate, with intensity rated at 3. Quality is described as burning (and stinging ), and is localized to the mouth. Patient reports no radiation. Patient started experiencing this week(s) (2) and it has been constant. No relieving factors improve symptom(s), No exacerbating factors reported . Patient notes cough. Patient did receive the following treatments prior to arrival, none Related Data Home Medications Medication Instructions Recorded Confirmed metoprolol tartrate 25 mg tablet 25 mg PO BID 05/05/13 08/05/19 lovastatin 10 mg tablet 20 mg PO HS 05/04/17 08/05/19 omeprazole 40 mg capsule,delayed 40 mg PO DAILY ##60 07/22/17 08/05/19 release famotidine 20 mg tablet 20 mg PO HS PRN 08/05/19 08/05/19 ferrous gluconate 324 mg (38 mg 324 mg PO DAILY 08/05/19 08/05/19 iron) tablet benzonatate 100 mg capsule 100 mg PO TID PRN cough #30 caps 11/29/21 prednisone 20 mg tablet 40 mg PO DAILY #8 tabs 11/29/21 Previous Rx's Medication Instructions Recorded omeprazole 40 mg capsule,delayed 40 mg PO DAILY ##60 07/22/17 release benzonatate 100 mg capsule 100 mg PO TID PRN cough #30 caps 11/29/21 prednisone 20 mg tablet 40 mg PO DAILY #8 tabs 11/29/21 Allergies Allergy/AdvReac Type Severity Reaction Status Date / Time bandaids AdvReac Intermediate skin rash Uncoded 08/05/19 16:38 General Stated Complaint: Sorethroat MARION: 4 Review of Systems Constitutional Constitutional: Denies chills, Denies fever(s), Denies headache(s) and Denies malaise ENT Ears, Nose, Mouth, and Throat: Reports as per HPI, Denies change in voice, Denies dysphagia, Denies otalgia, Denies headache(s), Denies hoarseness, Denies lip swelling, Denies mouth lesions, Reports mouth pain, Reports nasal congestion, Reports odynophagia, Reports sore throat, Denies throat swelling and Denies tongue swelling Cardiovascular Cardiovascular: Denies chest pain and Denies dyspnea Respiratory Respiratory: Denies chest congestion, Reports cough, Denies dyspnea, Denies stridor and Denies wheezing Gastrointestinal Gastrointestinal: Denies dysphagia and Reports odynophagia Integumentary/Breasts Skin/Breast: Denies rash Neurologic Neurologic: Denies headache(s) Allergic/Immunologic Allergic/Immunologic: Denies lip swelling, Denies throat swelling, Denies tongue swelling and Denies wheezing PFSH All Active Problems (Updated 11/29/21 @ 17:52 by Kervin Ortiz NP) Acute viral pharyngitis (Acute) URI (upper respiratory infection) (Acute) Menorrhagia (Acute) Medical History (Updated 11/29/21 @ 17:52 by Kervin Ortiz NP) GERD (gastroesophageal reflux disease) Hip pain, right Hyperlipidemia Hypomagnesemia Low back pain Marital problem Migraine Mood disorder PTSD (post-traumatic stress disorder) Restless legs Sleep apnea Tobacco use disorder Ventricular fibrillation Surgical History EGD - MAC (07/04/17) Implantation of automatic cardioverter/defibrillator, total system (AICD) Family History Father , 63 from [place] Diabetes Hypertension Hypercholesteremia Myocardial infarction Mother Hypertension Hypercholesteremia Sister Hypercholesteremia Thyroid disease Lupus (systemic lupus erythematosus) Sister Hypercholesteremia Sister Hypercholesteremia Sister Hypercholesteremia Brother Hypercholesteremia Diabetes Social History Smoking/Tobacco Use Status: Current every day Tobacco Type: cigarettes Smoking packs per day: 0.5 Smoking cigarettes per day: 10.0 Smoking risk assessment performed?: Yes Alcohol Intake: never Drug use: Never Do you feel safe at home: Yes Do you feel safe in your relationship?: Yes Female Reproductive History Menstrual control method: permanent sterilization (tubal 1998) History History 3 Para 2 Hx # Term Pregnancies Multiple births Hx # Pregnancies Ectopic pregnancies AB induced Hx Number of Living Children AB spontaneous Exam Const General: cooperative, healthy appearing, comfortable, no acute distress and not ill appearing Orientation: alert, awake and oriented x3 HENMT Head: normal to inspection and normocephalic Ears: hearing grossly normal bilaterally, external ears normal, TM's normal bilaterally and mastoids normal General nose exam: external nose normal and nares normal Face and sinus: normal facial exam Mouth: oral mucosae normal, lip normal, tongue normal, no audible dysphonia, no drooling and no trismus Throat: uvula midline, no peritonsillar masses, posterior oropharynx abnormal erythema; no exudates, no postnasal drainage and no uvular edema Neck Neck: normal visual inspection, full ROM, no lymphadenopathy and no meningeal signs Resp Effort & Inspection: normal respiratory effort, able to speak in complete sentences, cough Quality of cough: dry and no stridor Auscultation: clear to auscultation bilaterally Cardio Rate: regular rate Rhythm: regular rhythm Heart Sounds: S1 normal and S2 normal Skin General skin exam: no rashes or lesions noted
[2021-11-29] MEDS: Dexamethasone 10 MG/ML VIAL PO (17:59)
[2021-11-29] MEDS: Benzonatate 100 MG CAP PO (17:59)
== END 2021-11-29 18:07 | disposition home or self-care (01) ==
PROVIDERS: Emergency Provider Nurse Practitioner Family; PCP Nurse Practitioner Family
DX: J02.9 Acute pharyngitis, unspecified (principal); J06.9 Acute upper respiratory infection, unspecified; F17.210 Nicotine dependence, cigarettes, uncomplicated
CPT/HCPCS: 99283; J1100

== ENCOUNTER 2022-04-22 13:11 | Outpatient (REF) | payer BC, SELFPAY ==
[2022-04-23 13:19] LABS: Varicella Zoster DNA Result Negative ((See Note))
[2022-04-23 13:22] LABS: HSV 1 DNA Result Negative (Negative); HSV 2 DNA Result Positive (Negative)
== END 2022-04-22 13:12 | disposition home or self-care (01) ==
LOC: NCHCN 13:11
PROVIDERS: PCP Nurse Practitioner Family; Visit Provider Nurse Practitioner Family
DX: N90.89 Other specified noninflammatory disorders of vulva and perineum (principal)
CPT/HCPCS: 87529; 87798; 87480; 87510; 87660

== ENCOUNTER 2022-05-17 12:04 | Outpatient (REF) | payer BC, SELFPAY ==
[2022-05-17 16:42] LABS: TSH 1.81 uIU/mL (0.36-3.74)
== END 2022-05-17 12:05 | disposition home or self-care (01) ==
LOC: NCHCN 12:04
PROVIDERS: PCP Nurse Practitioner Family; Visit Provider Nurse Practitioner Family
DX: E03.9 Hypothyroidism, unspecified (principal)
CPT/HCPCS: 84443

== ENCOUNTER 2023-05-23 17:49 | Outpatient (REF) | payer BC, SELFPAY ==
--- NOTE | 2023-05-23 16:30 | PAPFT_PTH ---
PATIENT: Luna Contreras LOC: [facility]#:[id number] AGE/SX: 53/F ROOM: RE05/23/[address]: Diana Jones : 1970 BED: DIS: 05/23/2023 SPEC #: [id number] RECD: 05/24/23 13:00 STATUS: KIERA RESabine #: [id number] KIKI: 05/23/23 16:[address]: Diana Jones DEPT: [facility] Cytology RECD BY: Catrachita Cash Tissues: 1 - CX/ENDOCX FOR PAP SMEARS Procedures: PAP THIN PREP/UVM Screening HPV DNA PROBE Comments: [id number]
[2023-05-23 22:14] LABS: TSH 2.79 uIU/mL (0.36-3.74)
[2023-05-23 23:03] LABS: Hemoglobin A1C 5.5 % (<5.7)
[2023-05-23 23:24] LABS: Vitamin D 25 Total 56.2 ng/mL (30-100)
[2023-05-23 23:27] LABS: ALT 104 U/L (14-59); AST 34 U/L (15-37); Albumin 4.3 g/dL (3.4-5.0); Alkaline Phosphatase 84 U/L (46-116); Anion Gap 14.1 mmol/L (3-11); BUN 17 mg/dL (7-18); Bilirubin, Total 0.3 mg/dL (0.2-1.0); CO2 23.9 mmol/L (21.0-32.0); Chloride 101 mmol/L (98-107); Glucose 87 mg/dL (74-106); Potassium 4.3 mmol/L (3.5-5.1); Sodium 139 mmol/L (136-145); Total Protein 7.4 g/dL (6.4-8.2)
[2023-05-23 23:37] LABS: CREATININE 0.4 mg/dL (0.55-1.02); Estimated GFR 119.01 (mL/min/1.73m2)
[2023-05-24 11:46] LABS: HCT 40.5 % (36.0-46.0); HGB 13.6 g/dL (11.2-15.7); MCH 29.4 pg (27.0-33.0); MCHC 33.6 % (32.0-36.0); MCV 88 fL (80-95); MPV 12.1 fL (8.0-11.0); Platelet Count 140 10^3/uL (130-400); RBC 4.63 10^6/uL (3.93-5.22); RDW 12.9 % (11.7-14.6); RDW-SD 41.1 fL; WBC 5.49 10^3/uL (4.4-10.8)
[2023-05-24 12:09] LABS: Calculated LDL 83 mg/dL (<100); Cholesterol 166 mg/dL (<200); HDL Cholesterol 49 mg/dL (40-60); Triglyceride 171 mg/dL (<150)
[2023-05-24 19:42] LABS: HIV-1/2 Ag & Ab Screen Negative (Negative)
[2023-05-24 19:50] LABS: Hepatitis C Ab w Rflx HCV PCR Negative (Negative)
== END 2023-05-23 17:50 | disposition home or self-care (01) ==
LOC: NCHCN 17:49
PROVIDERS: PCP Nurse Practitioner Family; Visit Provider Nurse Practitioner Family
DX: Z00.00 Encounter for general adult medical examination without abnormal findings (principal); E03.9 Hypothyroidism, unspecified; N89.8 Other specified noninflammatory disorders of vagina; E55.9 Vitamin D deficiency, unspecified
CPT/HCPCS: 80053; 80061; 82306; 85027; 86803; 87389; 88142; 83036; 84443; 87480; 87510; 87624; 87660

== ENCOUNTER → 2023-06-16 03:34 | Outpatient (CLI) | payer BC, SELFPAY ==
--- NOTE | 2023-06-16 | DI.MAMMO_ITS ---
Exam(s) MAMMO SCREENING EXAM: MAMMO SCREENING CLINICAL HISTORY: Z12.31 Encounter for screening mammo for malig neoplasm of breast TECHNIQUE: Mammograms were interpreted according to the usual protocol including computer analysis w [employer] CAD system, tomosynthesis and C-view imaging. COMPARISON: 2017 through 2021 FINDINGS: The breasts are composed of scattered fibroglandular densities, Breast Density category B. No suspicious masses or suspicious microcalcifications are seen. No skin thickening or abnormal axillary lymph nodes are seen. There has been no significant change from prior exams. A pacemaker is again noted over the left pec regis muscle. IMPRESSION: BI-RADS Category 1, Negative mammogram Yearly screening mammography is recommended. Breast Density - Category B, scattered fibroglandular densities. A negative radiographic report should not delay biopsy if a dominant or clinically suspicious mass is present. Up to ten percent of cancers are not identified on mammography. A negative report may reinforce clinical impression. Adenosis and dense breasts may obscure an underlying neoplasm. False positive reports average 6 to 10%. Patient will receive a letter notifying them of these results.
== END ==
PROVIDERS: PCP Nurse Practitioner Family; Visit Provider Nurse Practitioner Family
DX: Z12.31 Encounter for screening mammogram for malignant neoplasm of breast (principal)
CPT/HCPCS: 77063; 77067

== ENCOUNTER 2023-07-27 17:42 | Outpatient (REF) | payer BC, SELFPAY ==
[2023-07-27 20:45] LABS: ALT 59 U/L (14-59); AST 23 U/L (15-37); Alkaline Phosphatase 85 U/L (46-116); Bilirubin, Direct 0.1 mg/dL (0.0-0.2); Bilirubin, Total 0.3 mg/dL (0.2-1.0)
== END 2023-07-27 17:43 | disposition home or self-care (01) ==
LOC: NCHCN 17:42
PROVIDERS: PCP Nurse Practitioner Family; Visit Provider Physician Assistant Medical
DX: R74.01 Elevation of levels of liver transaminase levels (principal)
CPT/HCPCS: 80076

== ENCOUNTER 2023-09-09 15:56 | Outpatient (REF) | payer BC, SELFPAY ==
--- NOTE | 2023-09-09 15:00 | ENDOMET_PTH ---
PATIENT: Luna Contreras LOC: [facility]#:[id number] AGE/SX: 53/F ROOM: RE09/09/[address]: Priyanka Hugo DO : 1970 BED: DIS: 09/09/2023 SPEC #: [id number] RECD: 09/09/23 16:43 STATUS: SOUT REQ #: [id number] KIKI: 09/09/23 15:[address]: Priyanka Hugo DEPT: Surgical Specimen RECD BY: Catrachita Cash ENTERED: 09/09/23 16:44 SP TYPE: Endomet OTHR DR: Diana Jones Tissues: 1 - ENDOMETRIUM BX/CURRETTE Procedures: GROSS AND MICRO LEVEL 4 Comments: [id number]
== END 2023-09-09 15:57 | disposition home or self-care (01) ==
LOC: LBN 15:56
PROVIDERS: PCP Nurse Practitioner Family; Visit Provider Obstetrics & Gynecology
DX: L90.0 Lichen sclerosus et atrophicus (principal)
CPT/HCPCS: 88305

== ENCOUNTER 2025-02-08 09:47 | Day surgery (SDC) | payer BC, SELFPAY ==
[2025-02-08 10:45] VITALS: BP 143/84; PULSE 60; RESP 16; TEMP 36.3; O2SAT 100
[2025-02-08] MEDS: Lactated Ringers 1,000 ML 80 ML IV (11:05)
--- NOTE | 2025-02-08 11:50 | W.ANESPRE ---
General Info Date of Service Date Performed: 02/08/25 Height: 5 ft 5 in Weight: 103.2 kg Body Mass Index (BMI): 37.8 Surgical Procedure: Operation Date: 02/08/25 12:35 Proposed Procedure Side Surgeon p Abdi Wright MD Meds Allergies and Home Medications Allergies Allergy/AdvReac Type Severity Reaction Status Date / Time NSAIDS (Non-Steroidal AdvReac Unknown Verified 02/08/25 10:38 Anti-Inflamma bandaids AdvReac Intermediate skin rash Uncoded 02/08/25 10:38 Home Medication ?Medication ?Instructions ?Recorded levothyroxine 125 mcg capsule 125 mcg PO DAILY 04/28/22 clobetasol 0.05 % topical ointment 1 applic topical BID #60 grams 09/27/23 nystatin-triamcinolone 100,000 1 applic topical BID #60 grams 03/28/24 unit/g-0.1 % topical cream sertraline 25 mg tablet 25 mg PO DAILY 03/28/24 famotidine 20 mg tablet 20 mg PO BID 10/03/24 metoprolol succinate 100 mg 150 mg PO HS 10/03/24 tablet,extended release 24 hr omeprazole magnesium 20 mg 20 mg PO DAILY 10/03/24 tablet,delayed release (Prilosec OTC) rosuvastatin 10 mg tablet 10 mg PO DAILY 10/03/24 valacyclovir 500 mg tablet 500 mg PO DAILY 10/03/24 cholecalciferol (vitamin D3) 25 25 mcg PO DAILY 01/18/25 mcg (1,000 unit) capsule bisacodyl 5 mg tablet,delayed 5 mg PO ONCE Colonoscopy Bowel 01/21/25 release Prep #4 tabs polyethylene glycol 3350 17 238 g PO ONCE #238 grams 01/21/25 gram/dose oral powder valacyclovir 1 gram tablet 1,000 mg PO DAILY 01/21/25 Current Visit Medications: Current Medications Generic Name Dose Route Start Last Admin Trade Name Freq PRN Reason Stop Dose Admin Ringer's Solution 1,000 mls @ 80 mls/hr 02/08/25 06:00 02/08/25 11:05 IV 02/08/25 23:59 80 mls/hr INFUSION ADRIÁN Administration IV Miscellaneous Supplies 1 each 02/08/25 06:00 Iv Access IV 02/08/25 23:59 DIRECTED ADRIÁN Sodium Chloride 0 ml 02/08/25 06:00 Normal Saline Flush 10 Ml Syr IV 02/08/25 23:59 PRN PRN Sodium Chloride 0 ml 02/08/25 06:00 Normal Saline 10 Ml Vial IJ 02/08/25 23:59 DIRECTED PRN Sterile Water 0 ml 02/08/25 06:00 Water,Injection,Sterile 10 Ml Vial IJ 02/08/25 23:59 DIRECTED PRN PFSH Active Problems Active Problems: Problem Status Onset Code Automatic implantable cardiac defibrillator in situ Acute Z95.810 Hypothyroidism Chronic E03.9 Lichen sclerosus et atrophicus Acute L90.0 Post-menopausal bleeding Acute N95.0 Yeast dermatitis Acute B37.2 Medical History Medical History Luna esophagus Menorrhagia Migraine Hypomagnesemia GERD (gastroesophageal reflux disease) Hip pain, right Tobacco use disorder Restless legs Hyperlipidemia Ventricular fibrillation Mood disorder Marital problem Sleep apnea Low back pain PTSD (post-traumatic stress disorder) Surgical History Surgical History Implantation of automatic cardioverter/defibrillator, total system (AICD) EGD - MAC (07/04/17) Tobacco Smoking/Tobacco Use Status: Former Tobacco Use Alcohol Alcohol Intake: current Alcohol intake frequency: holidays/special occasions only Substance Use Substance use: Never Prental History History 3 Para 2 Hx # Term Pregnancies Multiple births Hx # Pregnancies Ectopic pregnancies AB induced Hx Number of Living Children AB spontaneous Vital Signs and Lab Results Vital Signs Most Recent Vital Signs in EMR: Most Recent Vital Signs Temp Pulse Resp BP Pulse Ox 36.3 C L 60 16 143/84 H 100 02/08/25 10:45 02/08/25 10:45 02/08/25 10:45 02/08/25 10:45 02/08/25 10:45 Anesthesia Assessment and Plan Anesthesia History Personal History: No History of Anesthesia Complications Family History: No Family History of Anesthesia Complications Exercise Tolerance Exercise Tolerance: Metabolic Equivalents>4 Pertinent Negatives Pertinent Negatives: No Symptoms of GERD (rx) Cardiac & Pulmonary Exam Cardiac Exam: Normal S1/S2 Heart Sounds Pulmonary Exam: Clear Bilateral Breath Sounds Implantable Cardiac Device Does patient have a Pacemaker or an ICD?: Yes Device 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:: [employer] Reason for Placement:: V vib Date of Last Device Interrogation:: t Airway Exam Known Difficult Airway: No Mallampati Class: 2 Mouth Opening: Normal (> 3cm) Thyromental Distance: Greater than 3 cm Neck Range of Motion: Full ROM Neck Circumference: Normal Teeth Condition: Normal Dentition ASA Classification ASA Score: ASA 2 Emergency Case?: No NPO Status NPO Status: NPO Clears >2 hours, Solids >8 hours Status Status: Not Relevant due to Medical History Anesthesia Plan Resuscitation Status: Full Code Anesthesia Technique: General Anesthesia Airway Planned: Natural Airway Monitors Used: Standard Monitors Preoperative Comments:: ICD, Medtronic. No events for past 9-10 years
[2025-02-08 11:52] VITALS: BMI 37.8
--- NOTE | 2025-02-08 12:23 | BOWEL_PTH ---
PATIENT: Luna Contreras LOC: [facility]#:[id number] AGE/SX: 54/F ROOM: RE02/08/[address]: Rehana Wright : 1970 BED: DIS: 02/08/2025 SPEC #: [id number] RECD: 02/08/25 14:46 STATUS: KIERA REQ #: [id number] KIKI: 02/08/25 12:[address]: Rehana Wright DEPT: Surgical Specimen RECD BY: Nelly Hightower ENTERED: 02/08/25 14:47 SP TYPE: Bowel OTHR DR: Diana Jones Tissues: 1 - BIOPSY BOWEL Procedures: GROSS AND MICRO LEVEL 4 Comments: [id number]
--- NOTE | 2025-02-08 12:30 | W.PM.DSUDISC ---
Date of service: 02/08/25 Discharge Plan Disposition Patient Disposition: Home Condition: Good Discharge Details Attending Provider: Rehana Wright Primary Care Provider: Diana Jones Home Meds and New Rx's Prescriptions: Continued levothyroxine 125 mcg capsule 125 mcg PO DAILY sertraline 25 mg tablet 25 mg PO DAILY nystatin-triamcinolone 100,000-0.1 unit/g-% cream 1 applic topical BID Qty: 60 1RF cholecalciferol (vitamin D3) 25 mcg (1,000 unit) capsule 25 mcg PO DAILY valacyclovir 1 gram tablet 1,000 mg PO DAILY clobetasol 0.05 % ointment 1 applic topical BID Qty: 60 2RF Rx Instructions: Apply a pea-sized amount twice daily. rosuvastatin 10 mg tablet 10 mg PO DAILY valacyclovir 500 mg tablet 500 mg PO DAILY metoprolol succinate 100 mg tablet extended release 24 hr 150 mg PO HS omeprazole magnesium [Prilosec OTC] 20 mg tablet,delayed release (DR/EC) 20 mg PO DAILY famotidine 20 mg tablet 20 mg PO BID Discontinued bisacodyl 5 mg tablet,delayed release (DR/EC) 5 mg PO ONCE Qty: 4 0RF Rx Instructions: Per Colonoscopy bowel prep instructions polyethylene glycol 3350 17 gram/dose powder 238 g PO ONCE Qty: 238 0RF Rx Instructions: For Colonoscopy bowel prep, as directed by office Discharge Instructions Instructions: Colon polyps Additional Instructions: Your colonoscopy went well today. You did have one small polyp which was removed and sent to pathology. We will contact you regarding the pathology results and when to follow up for a repeat colonoscopy. 1. If tolerated, consume a soft, low fiber diet for 1-2 days. [address] Do not drive, drink alcohol, operate machinery, make critical decisions, or do activities that require coordination or balance for 24 hours. 3. Because air was put into your colon during the procedure, expelling air from your rectum (passing gas or farting) is normal. 4. You may not have a bowel movement for 1-3 days because of the colonoscopy prep. This is normal. 5. Go directly to the emergency room if you notice any of the following: Develop chills (warm to touch), or if you have a thermometer and your temperature is above 101 Difficulty breathing or difficultly swallowing Persistent vomiting Severe abdominal pain, other than gas cramps Severe chest pain Black, tarry stools Any bleeding ? exceeding one tablespoon 6. Call your physician if the site where your intravenous was started becomes red, swollen, painful, and warm to touch. 7. Your physician has reviewed your pre-procedure medications. Please continue to take those medications as previously ordered. You will be given specific information/education regarding any changes to your medications before leaving. Stand Alone Forms: Anesthesia Discharge InstStephani Loaiza (DSU) Activity:: Activity as Tolerated Diet:: As Tolerated Discharge Orders Discharge Orders: Discharge Order (Routine); Ordered 02/08/25 Ordered By: Rehana Wright
[2025-02-08 12:31] VITALS: BP 120/69; PULSE 61; RESP 16; TEMP 36; O2SAT 99
--- NOTE | 2025-02-08 12:33 | COLE_ITS ---
Date of service: 02/08/25 Time of Service: 12:33 Colonoscopy Report Date of procedure: 02/08/25 Pre-op diagnosis general: Screening colonoscopy Post-op diagnosis procedure note: same Procedure: Colonoscopy with polypectomy Surgeon: Rehana Wright Anesthesia Type: General:No Airway Estimated blood loss (mL): 1 Pathology: other (Rectal polyp ) Complications: None Disposition: PACU Indications: Patient is a 54 yo female who presents for a screening colonoscopy. Prep: Miralax/Dulcolax Procedure Start Time: 12:05 Procedure End Time: 12:24 Retraction Time: 14 Findings: Colonoscopy performed without difficulty. Rectal polyp removed with cold biopsy forcep. Evidence of hemorrhoids. Procedure Description: The patient was brought to the endoscopy suite and placed in the left lateral decubitus position. After induction of IV sedation, a digital rectal exam was performed. Digital exam was normal. Evidence of hemorrhoids on exam. The colonoscope was then passed to the cecum without difficulty. Cecal intubation was confirmed by the identification of the appendiceal orifice and the ileocecal valve. Upon withdrawing the colonoscope, all mucosal surfaces were inspected. The prep was noted to have some stool on the right side and transverse colon. This was improved with irrigation. In the rectum there was a small polyp, which was removed using cold forcep biopsy in its entirety. Specimen was retrieved for pathological analysis. There was no other evidence of mucosal abnormality, polyp or cancer. Retroflexion in the rectum was unremarkable.The patient tolerated the procedure well with no complications. Postoperatively, the patient was transferred to the recovery room in stable condition. [place] Bowel Prep [place] Bowel Prep Right Colon: 2 Left Colon: 3 Transverse Colon: 2 Total Score: 7
--- NOTE | 2025-02-08 12:38 | W.ANESPOSTOP ---
Postoperative Evaluation Date, Time and Location Date Performed: 02/08/25 Time Performed: 12:38 Patient Location: Day Surgery Unit Vital Signs Most Recent Imported Vital Signs: Most Recent Vital Signs Temp Pulse Resp BP Pulse Ox 36 C L 61 16 120/69 99 02/08/25 12:31 02/08/25 12:31 02/08/25 12:31 02/08/25 12:31 02/08/25 12:31 Pain Score Most Recent Pain Score: Most Recent Pain Score Pain Level 0 02/08/25 12:31 Assessment Mental Status: Awake (Alert & Oriented to Patient Baseline) Airway and Respiratory Function: Patent airway with normal (patient baseline) respiratory exam Cardiovascular Function: Hemodynamically Stable Hydration Status: Adequately Hydrated Nausea & Vomiting: No Nausea or Vomiting Pain: Pt. Denies Any Pain Peripheral Nerve Block: Patient did not receive a nerve block
[2025-02-08 13:05] VITALS: BP 140/77; PULSE 54; RESP 16; TEMP 36.2; O2SAT 98
== END 2025-02-08 13:12 | disposition home or self-care (01) ==
LOC: SUR 09:47
PROVIDERS: PCP Nurse Practitioner Family; Visit Provider Student in an Organized Health Care Education/Training Program
PROC: 0DJD8ZZ Inspection of Lower Intestinal Tract, Via Natural or Artificial Opening Endoscopic (ICD-10-PCS; CPT 45378; principal; 2025-02-08 12:30)
DX: Z12.11 Encounter for screening for malignant neoplasm of colon (principal); K62.1 Rectal polyp; K64.9 Unspecified hemorrhoids
CPT/HCPCS: 45380; 88305; J2003; J2704